=== PATIENT | female | born 1945 | race Caucasian/White ===

== ENCOUNTER 2017-02-10 03:30 | Emergency (ER) | payer MEDICARE, MEDICAID ==
[~2017-02-10] VITALS: Ht 165.1 cm; Wt 95.5 kg
[2017-02-10] MEDS ORDERED: AZIT500T2 (03:39)
[2017-02-10] MEDS ORDERED: FLUT1SPR2 (03:39)
[2017-02-10] MEDS ORDERED: ASPI1TAB PO (03:39)
[2017-02-10] MEDS ORDERED: IPRATROPIUM 0.5MG/ALBUTEROL 2.5MG INH SOL UD 3ML (DUONEB)(J7620) NEB ONE (04:00)
[2017-02-10] MEDS ORDERED: predniSONE 20 MG TAB PO ONE (04:15)
[2017-02-10] MEDS ORDERED: ALBU17IN INH (05:00)
[2017-02-10] MEDS ORDERED: PRED20TA PO (05:00)
[2017-02-10] MEDS ORDERED: ALBUTEROL 90 MCG/ACT 8GM HFA INHALER INH ONE (05:15)
[2017-02-10 05:25] VITALS: BP 141/86
--- NOTE | 2017-02-10 08:14 | REP ---
PA and lateral chest: There are no comparisons. The lung soto are clear. The cardiac size is normal The connie, mediastinum, and bony thorax are unremarkable. Impression: Negative PA and lateral chest. Signed by Poncho Lewis MD 02/10/2017 08:06 A
== END 2017-02-10 05:26 | disposition home or self-care (01) ==
LOC: M ED 03:30
DX: J20.9 Acute bronchitis, unspecified (principal)

== ENCOUNTER → 2017-09-18 | Outpatient (REF) | payer MEDICARE, MEDICAID | LOC: M LAB REF 19:28 | DX: R35.0 Frequency of micturition (principal) | CPT/HCPCS: 87086 ==

== ENCOUNTER 2018-02-18 08:05 | Day surgery (SDC) | payer MEDICARE, MEDICAID ==
[~2018-02-18 08:05] MED LIST: MIDAZOLAM INJ 2 MG/2 ML VIAL (J2250) As Ordered; fentaNYL 100 MCG/2 ML INJECTION (J3010) As Ordered
[2018-02-18] MEDS: OFLOXACIN 0.3 % (OCUFLOX) OPTH SOL 5ML OD (08:40)
[2018-02-18] MEDS: TROPICAMIDE 1% OPHTH SOLN 2ML OD (08:40)
[2018-02-18] MEDS: PHENYLEPHRINE 2.5% OPHTH SOL 2ML OD (08:40)
[2018-02-18] MEDS: PROPARACAINE 0.5% OPHTH SOL 15ML OD (08:40)
[2018-02-18] MEDS: POVIDONE-IODINE 5% OPHTH PREP SOL 30ML As Ordered (09:52)
[2018-02-18] MEDS: BALANCED SALT IRRIGATION SOLUTION 500ML BAG (FOR OR EYE MACHINE) As Ordered (09:54)
[2018-02-18] MEDS: DUOVISC (0.50ML VISCOAT/0.55ML PROVISC) OPHTH KIT As Ordered (09:54)
[2018-02-18] MEDS: LIDOCAINE 0.75%/EPINEPHRINE 0.025% IN BSS 1ML SYR INTRACAMERAL (OR ONLY) As Ordered (09:54)
[2018-02-18] MEDS: MOXIFLOXACIN IN BSS 0.25MG/0.25ML INTRACAMERAL INJ (OR EYE ONLY)(J2280) As Ordered (09:54)
== END 2018-02-18 10:50 | disposition home or self-care (01) ==
LOC: M SDC 08:05
DX: H25.11 Age-related nuclear cataract, right eye (principal); Z91.040 Latex allergy status; Z88.0 Allergy status to penicillin; Z79.899 Other long term (current) drug therapy
CPT/HCPCS: 66984

== ENCOUNTER 2024-03-16 13:26 | Emergency (ER) | payer MEDICARE, MEDICAID ==
[~2024-03-16] VITALS: Ht 162.6 cm; Wt 83.2 kg
[~2024-03-16 13:26] MED LIST changes: +ACET1TAB55 PO; +ALBU17IN INH; +ASPI81TA26 PO; +ATOR40TA75; +AZIT500T5; +BONE PO; +CARB1DRO11 OP; +CARB1DRO11 OU; +COMPLETE TISSUE PO; +CURCPOW PO; +CVS500CA5 PO; +ELIQ5TAB; +FARX1TAB3; +FLUT1SPR2; +HAWTHORN PO; +MAGN200T PO; -MIDAZOLAM INJ 2 MG/2 ML VIAL (J2250) As Ordered; +MULT1TAB10 PO; +OMEG100011 PO; +PRED20TA PO; +SEMA3TAB4; +THERATEARS PO; +THERTAB52 PO; +VITA-243 PO; +VITMTA PO; -fentaNYL 100 MCG/2 ML INJECTION (J3010) As Ordered
[2024-03-16] MEDS ORDERED: SEMA0.257 (13:36)
[2024-03-16 14:09] LABS: BASO % 0.4 % (0.0-1.0); EOS # 0.1 10^3/uL (0.0-0.5); EOS % 0.9 % (0.0-3.0); LYMPH # 1.6 10^3/uL (1.5-5.0); LYMPH % 16.2 % (24.0-44.0); MEAN CORPUSCULAR HEMOGLOBIN 29.8 pg (27.0-33.0); MEAN CORPUSCULAR VOLUME 93.1 fl (80.0-96.0); MONO # 0.8 10^3/uL (0.0-0.8); MONO % 7.5 % (2.0-8.0); NEUTROPHILS # 7.6 10^3/uL (1.5-8.5); NEUTROPHILS % 74.6 % (36.0-66.0); PLATELET COUNT, AUTOMATED 278 10^3/uL (150-450); RED BLOOD COUNT 5.37 10^6/uL (4.00-5.40); WHITE BLOOD COUNT 10.1 10^3/uL (4.0-10.0)
[2024-03-16 14:41] LABS: ALBUMIN 3.5 G/DL (3.2-5.2); BILIRUBIN,DIRECT 0.1 MG/DL (<0.4); BILIRUBIN,TOTAL 0.4 MG/DL (0.3-1.2); TOTAL PROTEIN 7.4 G/DL (5.7-8.2)
[2024-03-16] MEDS: ONDANSETRON 4MG 2ML VIAL IV ONE (14:41)
[2024-03-16] MEDS ORDERED: ONDA-282 PO (15:23)
[2024-03-16 15:33] VITALS: BP 144/74; TEMP 96.7; O2SAT 96
== END 2024-03-16 15:34 | disposition home or self-care (01) ==
LOC: M ED 13:26
DX: R11.0 Nausea (principal); T38.3X5A Adverse effect of insulin and oral hypoglycemic [antidiabetic] drugs, initial encounter; Z86.718 Personal history of other venous thrombosis and embolism; E11.9 Type 2 diabetes mellitus without complications; Z79.01 Long term (current) use of anticoagulants; Z79.899 Other long term (current) drug therapy; Z88.0 Allergy status to penicillin; Z88.8 Allergy status to other drugs, medicaments and biological substances; Z91.040 Latex allergy status
CPT/HCPCS: 80047; 80076; 83690; 85025; 96374; 99284; J2405

== ENCOUNTER 2024-09-04 10:09 | Emergency (ER) | payer MEDICARE, MEDICAID ==
[~2024-09-04] VITALS: Ht 160 cm; Wt 78.0 kg
[~2024-09-04 10:09] MED LIST changes: +ONDA-282 PO; +SEMA0.257
[2024-09-04 12:20] VITALS: BP 141/93; TEMP 98.1; O2SAT 95
[2024-09-04 12:29] LABS: BASO % 0.3 % (0.0-1.0); EOS % 0.3 % (0.0-3.0); HEMOGLOBIN 15.8 g/dl (12.0-15.5); LYMPH # 1.2 10^3/uL (1.5-5.0); LYMPH % 15.6 % (24.0-44.0); MEAN CORPUSCULAR HEMOGLOBIN 29.6 pg (27.0-33.0); MEAN CORPUSCULAR HGB CONC 32.2 g/dl (32.0-36.5); MEAN CORPUSCULAR VOLUME 91.9 fl (80.0-96.0); MONO # 0.6 10^3/uL (0.0-0.8); NEUTROPHILS # 5.7 10^3/uL (1.5-8.5); NEUTROPHILS % 75.3 % (36.0-66.0); PLATELET COUNT, AUTOMATED 252 10^3/uL (150-450); RED BLOOD COUNT 5.33 10^6/uL (4.00-5.40); WHITE BLOOD COUNT 7.5 10^3/uL (4.0-10.0)
[2024-09-04 12:55] LABS: BLOOD UREA NITROGEN 18 MG/DL (9-23); CALCIUM LEVEL 9.3 MG/DL (8.3-10.6); CARBON DIOXIDE LEVEL 30 MMOL/L (20-31); CHLORIDE LEVEL 106 MMOL/L (98-107); CREATININE FOR GFR 0.45 MG/DL (0.55-1.30); GLOMERULAR FILTRATION RATE > 90.0 (>32); GLUCOSE, FASTING 241 MG/DL (74-106); POTASSIUM SERUM 4.6 MMOL/L (3.5-5.1); SODIUM LEVEL 143 MMOL/L (136-145)
[2024-09-04] MEDS ORDERED: MUCI600T31 PO (13:06)
[2024-09-04] MEDS ORDERED: BENZ200C70 PO (13:06)
== END 2024-09-04 13:13 | disposition home or self-care (01) ==
LOC: M ED 10:09
DX: J09.X2 Influenza due to identified novel influenza A virus with other respiratory manifestations (principal); E11.65 Type 2 diabetes mellitus with hyperglycemia; Z86.718 Personal history of other venous thrombosis and embolism; Z79.01 Long term (current) use of anticoagulants; Z79.4 Long term (current) use of insulin; Z79.899 Other long term (current) drug therapy; Z88.0 Allergy status to penicillin; Z88.8 Allergy status to other drugs, medicaments and biological substances; Z91.040 Latex allergy status